=== PATIENT | female | born 1975 | race Caucasian/White ===

== ENCOUNTER 2023-01-30 14:29 | Emergency (ER) | payer OTHER, SELFPAY ==
[2023-01-30 14:50] VITALS: BP 109/47; PULSE 72; RESP 18; TEMP 36.6; O2SAT 98
--- NOTE | 2023-01-30 15:37 | ED.LOWEXIN ---
HPI - Extremity Injury (Lower) General Chief Complaint: Extremity Injury, Lower Stated Complaint: right leg injury Time Seen by Provider: 01/30/23 15:35 Source: patient, RN notes reviewed and old records reviewed Mode of arrival: ambulatory Limitations: no limitations History of Present Illness HPI Narrative: 47 year old female who presents to express care with complaints of injury to her right leg which occurred 9 days ago when she fell in a hole on the parking lot of hotel. Patient continues to have some swelling to the anterior lateral aspect of her right lower leg with bruising and some redness noted. Patient denies any pain to calf region of her leg or any warmth noted to calf. Patient concerned since still having some swelling to her lateral right leg with no fluctuant tissue noted. Patient has bruising with some tenderness on palpation patient refused offer for x-ray at another facility due to no - tech in this facility today. Patient has been taking Ibuprofen for her discomfort MD complaint: leg injury Onset (ago): week(s) (9) Severity scale (1-10): 7 Treatments prior to arrival: NSAIDS Related Data Home Medications Medication Instructions Recorded Confirmed naltrexone 8 mg-bupropion 90 mg 1 tablet PO DIRECTED 01/30/23 01/30/23 tablet,extended release (Contrave) Allergies Allergy/AdvReac Type Severity Reaction Status Date / Time No Known Allergies Allergy Unverified 07/08/16 09:24 Review of Systems Review of Systems: CONSTITUTIONAL: Denies fever, chills, or sweats. EYES: Denies visual changes, redness, or discharge. ENT: Denies rhinorrhea, congestion, sore throat, or otalgia. CARDIOVASCULAR: Denies chest pain, palpitations, or edema. RESPIRATORY: Denies cough or dyspnea. GASTROINTESTINAL: Denies abdominal pain, nausea, vomiting, or diarrhea. GENITOURINARY: Denies dysuria or hematuria. SKIN: Denies rash or itching. MUSCULOSKELETAL: Denies back pain,positive for pain to her right lower leg anterior aspect, , or myalgia. NEUROLOGIC: Denies headache, numbness, or weakness. PSYCHIATRIC: Denies anxiety or depression. All systems reviewed & are unremarkable except as noted in HPI and below PMFSH Past Medical History Medical History (Updated 02/01/23 @ 20:51 by Sherly Martinez NP) Chronic sinusitis Obesity UTI (urinary tract infection) Surgical History Surgical History (Updated 01/31/23 @ 21:26 by Sherly Martinez NP) H/O: hysterectomy History of cholecystectomy History of placement of ear tubes History of tonsillectomy and adenoidectomy LAP-BAND surgery status Family History Family History Mother Family history of arthritis Family history of diabetes mellitus in first degree relative Social History Social History (Updated 01/31/23 @ 21:23 by Sherly Martinez NP) Smoking status: Never smoker Alcohol intake: never Substance use: never Substance use type: does not use Gender identity (if verbalized by the patient): Female Comments At time of signature, agree with nursing past medical, surgical, social and family history. There is no relevant family history pertinent to the presenting complaint Exam Narrative: GENERAL: Well-appearing, well-nourished, and in no acute distress. HEAD: Normocephalic, atraumatic. EYES: PERRLA and EOMI. ENT: Nares clear, no rhinorrhea or epistaxis. Mucous membranes moist.TM's normal throat pink NECK: Supple. no lymphadenopathy CHEST: Clear to auscultation. No respiratory distress.SAO2 98% on room air HEART: Regular rate and rhythm. No murmur heard. Normal peripheral pulses. ABDOMEN: Soft, nontender, nondistended, normal active bowel sounds. EXTREMITIES: Normal range of motion. No edema.Exception noted to right lower leg lateral leg which has some swelling and bruising, healing abrasion to right knee noted. SKIN: Warm, dry, no rash. NEURO: No focal deficits. Alert and oriented x3.
== END 2023-01-30 16:03 | disposition home or self-care (01) ==
PROVIDERS: Emergency Provider Registered Nurse; PCP Nurse Practitioner Family
DX: S80.11XA Contusion of right lower leg, initial encounter (principal); W17.2XXA Fall into hole, initial encounter; E66.9 Obesity, unspecified; Z68.43 Body mass index [BMI] 50.0-59.9, adult
CPT/HCPCS: 99212; G0463